=== PATIENT | male | born 1995 | race Caucasian/White ===

== ENCOUNTER 2017-09-10 19:19 | Emergency (ER) | payer OTHER ==
--- NOTE | 2017-09-10 19:38 | EDPHY ---
H & P Stated Complaint: Occipital paresthesias, altered mental status Time Seen by Provider: 09/10/17 19:30 HPI/ROS: CHIEF COMPLAINT: Occipital paresthesias, mild disorientation HISTORY OF PRESENT ILLNESS: The patient presents the ED with a 4 day history of occipital paresthesia and reported symptoms of mild disorientation. The patient denies any numbness or weakness in his arms or legs. The patient denies any difficulty with speech or vision. The patient reports he does have a history of cocaine use. He last used cocaine a week ago. The patient reports his symptoms became somewhat worse after using Adderall yesterday. The patient denies chest pain but does report this sensation of a strongly beating heart. The patient denies acute chest pain, shortness of breath, asymmetric calf pain or swelling. The patient has no complaints of acute headache. REVIEW OF SYSTEMS: A comprehensive 10 point review of systems is otherwise negative aside from elements mentioned in the history of present illness. Source: Patient Exam Limitations: No limitations - Personal History Current Tetanus/Diphtheria Vaccine: Yes Current Tetanus Diphtheria and Acellular Pertussis (TDAP): Yes - Medical/Surgical History Hx Asthma: No Hx Chronic Respiratory Disease: No Hx Diabetes: No Hx Cardiac Disease: No Hx Renal Disease: No Hx Cirrhosis: No Hx Alcoholism: No Hx HIV/AIDS: No Hx Splenectomy or Spleen Trauma: No Other PMH: ORTHO - Social History Smoking Status: Never smoked - Physical Exam Exam: General Appearance: Alert, no distress Eyes: Pupils equal and round no pallor or injection ENT, Mouth: Mucous membranes moist Respiratory: There are no retractions, lungs are clear to auscultation Cardiovascular: Regular rate and rhythm Gastrointestinal: Abdomen is soft and nontender, no masses, bowel sounds normal Neurological: Alert and oriented x4, 5/5 strength all 4 extremities, finger to nose intact, sensation intact in extremities, patient reports decreased sensation to light touch in his occipital region bilaterally. Skin: Warm and dry, no rashes Musculoskeletal: Neck is supple nontender Extremities: symmetrical, full range of motion Constitutional: Initial Vital Signs Temperature (C) 36.6 C 09/10/17 19:25 Heart Rate 104 H 09/10/17 19:25 Respiratory Rate 20 09/10/17 19:25 Blood Pressure 159/91 H 09/10/17 19:25 O2 Sat (%) 98 09/10/17 19:25 O2 Delivery Mode Room Air Allergies/Adverse Reactions: No Known Allergies Allergy (Unverified 09/10/17 19:28) Home Medications: Medication Instructions Recorded NK [No Known Home Meds] 09/10/17 Medical Decision Making - Diagnostics EKG Interpretation: EKG: Complete interpretation has been separately recorded in the [facility] archive. Summary impression: Sinus rhythm, 94 Imaging Results: Imaging Impressions Brain MRI 09/10/17 19:55 Impression: Normal. No evidence of acute ischemia. Findings discussed with Emergency Department physician, Jose Tompkins at 20:49. ED Course/Re-evaluation: The patient presents to the ED with a highly distributed paresthesia in his occiput and vague complaints of confusion and disorientation. The patient's past medical history is significant for cocaine use and Adderall use. Given the patient's complaints an MRI of the brain was obtained which demonstrates no evidence of an acute stroke. The patient's EKG demonstrates no evidence of ischemia and the patient's metabolic panel troponin are within normal limits. The patient's neurologic examination demonstrates no significant motor deficits. The patient has no clinical evidence of meningitis. I re-evaluated the patient several times over his 2 hr stay in the emergency department. At this point time I do feel the patient can be discharged home and follow up with Neurology for any ongoing symptoms. It is certainly possible he is having a migraine variant. Differential Diagnosis: Differential diagnosis considered includes stroke, acute coronary syndrome, dehydration, metabolic abnormality, [employer]CH[employer]ICIAN tumor, meningitis - Data Points Laboratory Results: Laboratory Results 09/10/17 19:47 09/10/17 19:47 09/10/17 09/10/17 19:47 19:47 WBC 9.15 10^3/uL 10^3/uL (3.80-9.50) RBC 5.09 10^6/uL 10^6/uL (4.40-6.38) Hgb 14.3 g/dL g/dL (13.7-17.5) Hct 42.4 % % (40.0-51.0) MCV 83.3 fL fL (81.5-99.8) MCH 28.1 pg pg (27.9-34.1) MCHC 33.7 g/dL g/dL (32.4-36.7) RDW 13.4 % % (11.5-15.2) Plt Count 338 10^3/uL 10^3/uL (150-400) MPV 9.6 fL fL (8.7-11.7) Neut % (Auto) 52.2 % % (39.3-74.2) Lymph % (Auto) 32.6 % % (15.0-45.0) [place] % (Auto) 12.0 % % (4.5-13.0) Eos % (Auto) 2.1 % % (0.6-7.6) Baso % (Auto) 0.7 % % (0.3-1.7) Nucleat RBC Rel Count 0.0 % % (0.0-0.2) Absolute Neuts (auto) 4.78 10^3/uL 10^3/uL (1.70-6.50) Absolute Lymphs (auto) 2.98 10^3/uL 10^3/uL (1.00-3.00) Absolute Monos (auto) 1.10 10^3/uL H 10^3/uL (0.30-0.80) Absolute Eos (auto) 0.19 10^3/uL 10^3/uL (0.03-0.40) Absolute Basos (auto) 0.06 10^3/uL 10^3/uL (0.02-0.10) Absolute Nucleated RBC 0.00 10^3/uL 10^3/uL (0-0.01) Immature Gran % 0.4 % % (0.0-1.1) Immature Gran # 0.04 10^3/uL 10^3/uL (0.00-0.10) Sodium 142 mEq/L mEq/L (135-145) Potassium 3.8 mEq/L mEq/L (3.5-5.2) Chloride 104 mEq/L mEq/L (97-110) Carbon Dioxide 22 mEq/l mEq/l (22-31) Anion Gap 16 mEq/L mEq/L (8-16) BUN 12 mg/dL mg/dL (7-23) Creatinine 1.2 mg/dL mg/dL (0.7-1.3) Estimated GFR > 60 Glucose 74 mg/dL mg/dL (70-100) Calcium 9.5 mg/dL mg/dL (8.5-10.4) Troponin I < 0.012 ng/mL ng/mL (0.000-0.034) Departure - Departure Disposition: Home, Routine, Self-Care Clinical Impression: Paresthesia of skin Condition: Good Instructions: Paresthesia (ED) Additional Instructions: 1. Your laboratory testing, MRI and EKG all demonstrate no acute abnormality. 2. I do recommend increasing your fluid intake over the next several days. 3. Please follow up with a neurologist you have been referred to for any ongoing symptoms. 4. Please return to the ED for markedly worsening symptoms, fever, vomiting or other concerns. Referrals: Lebron Santiago MD [Medical Doctor] - As per Instructions
--- NOTE | 2017-09-10 19:53 | CPEKG ---
Heart Rate: 94 RR Interval: 638 P-R Interval: 136 QRSD Interval: 84 QT Interval: 388 QTC Interval: 486 P [place]: 53 QRS [place]: 62 T Wave [place]: 29 EKG Severity - BORDERLINE ECG - EKG Impression: SINUS RHYTHM Electronically Signed By: Jose Tompkins 10-Sep-2017 19:59:41
[2017-09-10 19:54] LABS: PLATELET COUNT 338 10^3/uL (150-400)
[2017-09-10 21:29] VITALS: BP 125/80; PULSE 90; RESP 16; TEMP 705.2; O2SAT 99
== END 2017-09-10 21:31 | disposition home or self-care (01) ==
DX: R20.2 Paresthesia of skin (principal)